=== PATIENT | male | born 1990 | race Caucasian/White ===

== ENCOUNTER 2016-08-18 08:45 | Emergency (ER) | payer SELFPAY ==
[2016-08-18] MEDS ORDERED: KETOROLAC TROMETHAMINE 60 MG/2 ML VIAL IM ONE (08:52)
--- NOTE | 2016-08-18 09:28 | ED Physician Documentation ---
Upper Extremity Injury - HISTORIAN Historian: patient - HPI Stated Complaint: Left Shoulder Injury s/p Fall Chief Complaint: Upper Extremity Injury Onset: just prior to arrival Where: work ([employer]) Severity: moderate Context: fall Modifying Factors: pain on movement Further Comments: yes (26 year old male patient presents with right shoulder pain after falling on the ice. C/O pain 10/10 with ROM) - ROS CONST: no problems CVS/RESP: none NEURO: none MS/SKIN/LYMPH: none GI/: denies: nausea, vomiting - PAST HX Past History: Rt handed, other (depression) Allergies/Adverse Reactions: Allergies Allergy/AdvReac Type Severity Reaction Status Date / Time No Known Allergies Allergy Unverified 08/18/16 08:58 Home Medications: Ambulatory Orders Medication Instructions Recorded Escitalopram Oxalate [Lexapro] 10 mg PO QD 08/18/16 Ketorolac Tromethamine [Toradol] 10 mg PO TID #15 tablet 08/18/16 - SOCIAL HX Smoking History: cigarettes - FAMILY HX Family History: none - VITAL SIGNS Vital Signs: Vital Signs Temp Pulse Resp BP Pulse Ox 97 F L 72 18 132/68 99 08/18/16 08:45 08/18/16 09:46 08/18/16 09:46 08/18/16 09:46 08/18/16 09:46 - REVIEWED ASSESSMENTS Nursing Assessment Reviewed: Yes Vitals Reviewed: Yes Progress - Progress Progress: Sling applied Reviewed xray results and plan of care. Questions answered. ED Results Lab/Radiology - Radiology Radiology Impressions: Left shoulder 3 views Clinical history: Fell and injured the left shoulder complaining pain. There is a grade III left acromioclavicular joint separation. The distal left clavicle is the superiorly from the acromion. No fractures or bone destruction. No soft tissue calcifications Impression: Grade III left acromioclavicular joint separation - Orders Orders: ED Orders Category Date Time Status Sling to Affected Extremity 1T Care 08/18/16 09:30 Active SHOULDER 2 VIEWS OR MORE [RAD] Stat Exams 08/18/16 Taken Ketorolac Tromethamine [Toradol] Med 08/18/16 08:52 Discontinued 60 mg IM NOW ONE Upper Extremity Injury Physic - Physical Exam General Appearance: moderate distress Hand: normal inspection, non-tender, no evidence of injury, normal ROM Wrist: normal inspection, non-tender, no evidence of injury, normal ROM Elbow/Forearm: normal inspection, non-tender, no evidence of injury, normal ROM Shoulder: normal inspection, bone tenderness, limited ROM, pain, soft tissue tenderness Neuro/Vascular/Tendon: no vascular compromise, motor nml, sensation nml, ROM nml Skin: warm,dry Resp/CVS: chest non-tender, breath sounds nml, heart sounds nml, no resp. distress, lungs clear, reg. rate & rhythm Abdomen: non-tender, pelvis stable Discharge Clincal Impression: Acromioclavicular joint separation, type 3 Qualifiers: Encounter type: initial encounter Laterality: left Qualified Code(s): S43.102A - Unspecified dislocation of left acromioclavicular joint, initial encounter Prescriptions: Ketorolac Tromethamine [Toradol] 10 mg PO TID #15 tablet Referrals: Primary Doctor,No [Primary Care Provider] - 2 Days Additional Instructions: Rest ice Sling upper extremity surgeon your 2 medications at the pharmacy today and take as directed See your primary care doctor next week to set up physical therapy. Expect to return to normal activity in 6-12 weeks. Home Medications: Ambulatory Orders Escitalopram Oxalate [Lexapro] 10 mg PO QD 08/18/16 Ketorolac Tromethamine [Toradol] 10 mg PO TID #15 tablet 08/18/16 Condition: Stable Disposition: HOME, SELF-CARE Decision to Admit: NO Decision Time: 09:28
[2016-08-18 09:47] VITALS: BP 132/68
--- NOTE | 2016-08-18 18:25 | Diagnostic Imaging Report ---
[facility] [address] [facility].[address] [address] ~ ~ ~ ~ Report Submission Date: Aug 18, 2016 9:15:09 AM VOLUNTEER ASSISTANT Patient ~ Study Name: JOSEF MICHEL ~ Date: Aug 18, 2016 9:02:02 AM VOLUNTEER ASSISTANT ~ Modality Type: CR Gender: M ~ Description: SHOULDER : 89 ~ Institution: [facility] Physician: PARMINDER GALLOWAY ~ ~ ~ ~ Left shoulder 3 views Clinical history: Fell and injured the left shoulder complaining pain. There is a grade III left acromioclavicular joint separation. The distal left clavicle is the superiorly from the acromion. No fractures or bone destruction. No soft tissue calcifications Impression: Grade III left acromioclavicular joint separation ~ Electronically signed on Aug 18, 2016 9:15:09 AM VOLUNTEER ASSISTANT by: Nayan ADAMSON
== END 2016-08-18 09:46 | disposition home or self-care (01) ==
LOC: ED 08:45
DX: S43.102A Unspecified dislocation of left acromioclavicular joint, initial encounter (principal); W00.0XXA Fall on same level due to ice and snow, initial encounter; Y93.9 Activity, unspecified; Y99.9 Unspecified external cause status
CPT/HCPCS: 73030; J1885; 96372; 99283; 99284